=== PATIENT | female | born 1990 | race Hispanic/Latino ===

== ENCOUNTER 2018-02-18 12:39 | Emergency (ER) | payer SELFPAY ==
[~2018-02-18] VITALS: Ht 144.8 cm; Wt 54.4 kg
[2018-02-18] MEDS ORDERED: KETOROLAC TROMETHAMINE 30 MG/ML VIAL IV STA (13:02)
[2018-02-18] MEDS ORDERED: HYDROCODONE/APAP 7.5MG-325MG 1 EA TAB PO PRN (13:15)
[2018-02-18] MEDS ORDERED: HYDROCODONE/APAP 7.5MG-325MG 1 EA TAB PO ONE (13:15)
[2018-02-18 15:42] VITALS: BP 131/61
--- NOTE | 2018-02-18 20:52 | Diagnostic Imaging Report ---
PROCEDURE: Frontal and lateral views of the chest. COMPARISON: None. INDICATIONS: LT SIDE CHEST PAIN FINDINGS: Lines/tubes: None. Lungs: The lungs are well inflated and clear. There is no evidence of pneumonia or pulmonary edema. Pleura: There is no pleural effusion or pneumothorax. Heart and mediastinum: The heart and the mediastinum are normal. Bones: No acute bony abnormality. IMPRESSION: 1. No acute cardiopulmonary abnormalities. Xavier Padilla M.D. Dictated by: Xavier Padilla M.D. on 02/18/2018 at 14:54 Electronically approved by: Xavier Padilla M.D. on 02/18/2018 at 14:54
== END 2018-02-18 15:47 | disposition home or self-care (01) ==
LOC: ER 12:39
DX: R07.89 Other chest pain (principal); E05.90 Thyrotoxicosis, unspecified without thyrotoxic crisis or storm
CPT/HCPCS: 36415; 71046; 84702; 93005; 99284; J1885

== ENCOUNTER 2018-05-05 21:38 | Emergency (ER) | payer SELFPAY ==
[~2018-05-05] VITALS: Ht 144.8 cm; Wt 54.4 kg
[2018-05-05] MEDS ORDERED: HYDROCODONE/APAP 5MG-325MG TAB ONE (22:18)
[2018-05-05] MEDS ORDERED: HYDROCODONE/APAP 5MG-325MG TAB PO ONE (22:30)
[2018-05-05 23:00] VITALS: BP 112/64
== END 2018-05-05 23:08 | disposition home or self-care (01) ==
LOC: ER 21:38
DX: S61.210A Laceration without foreign body of right index finger without damage to nail, initial encounter (principal); W26.0XXA Contact with knife, initial encounter; Y92.008 Other place in unspecified non-institutional (private) residence as the place of occurrence of the external cause
CPT/HCPCS: 99283

== ENCOUNTER 2021-11-08 11:25 | Emergency (ER) | payer OTHER ==
[~2021-11-08] VITALS: Ht 144.8 cm; Wt 54.4 kg
[2021-11-08] MEDS ORDERED: KETOROLAC TROMETHAMINE 60 MG/2 ML VIAL IM ONE (12:15)
[2021-11-08] MEDS ORDERED: NAPROSYN500 MG PO (13:11)
[2021-11-08] MEDS ORDERED: CYCLOBENZAPRINE10 MG PO (13:11)
== END 2021-11-08 13:37 | disposition home or self-care (01) ==
LOC: FSED 11:52
DX: S13.4XXA Sprain of ligaments of cervical spine, initial encounter (principal); S39.012A Strain of muscle, fascia and tendon of lower back, initial encounter; V43.52XA Car driver injured in collision with other type car in traffic accident, initial encounter; Y92.488 Other paved roadways as the place of occurrence of the external cause; E03.9 Hypothyroidism, unspecified
CPT/HCPCS: 72100; 99283; J1885